=== PATIENT | female | born 1995 | race Caucasian/White ===

== ENCOUNTER 2017-07-08 11:00 | Emergency (ER) | payer BC ==
[~2017-07-08] VITALS: Ht 177.8 cm; Wt 75.0 kg
[2017-07-08] MEDS ORDERED: PERCOCET 5/31 TABLET PO (14:12)
[2017-07-08 14:32] VITALS: BP 128/70
== END 2017-07-08 14:33 | disposition home or self-care (01) ==
LOC: EME 11:00
PROC: 2W3QX1Z Immobilization of Right Lower Leg using Splint (ICD-10-PCS; principal; 2017-07-08)
DX: S82.391A Other fracture of lower end of right tibia, initial encounter for closed fracture (principal); V00.321A Fall from snow-skis, initial encounter; Y93.23 Activity, snow (alpine) (downhill) skiing, snowboarding, sledding, tobogganing and snow tubing
CPT/HCPCS: 73590; 73610; 99281; 99284